=== PATIENT | female | born 1960 | race Caucasian/White ===

== ENCOUNTER → 2016-09-04 | Outpatient (CLI) | payer BC ==
[~2016-09-04] MED LIST: MAGN200T3 PO; MULT-506 PO
--- NOTE | 2016-09-05 07:55 | MAMMOGRAPHY REPORT ---
BILATERAL DIGITAL SCREENING MAMMOGRAM TOMOSYNTHESIS WITH CAD: 09/04/2016 CLINICAL HISTORY: Routine screening. Patient has no complaints. TECHNIQUE: Breast tomosynthesis in addition to standard 2D mammography was performed. Current study was also evaluated with a Computer Aided Detection (CAD) system. COMPARISON: Comparison is made to exams dated: 09/04/2015 mammogram, 08/31/2014 mammogram, 08/30/2013 ma mmogram, 08/28/2012 mammogram, 08/27/2011 mammogram, and 08/23/2010 mammogram - [facility] enter. BREAST COMPOSITION: There are scattered areas of fibroglandular density in both breasts. FINDINGS: There are stable benign coarse calcifications in the medial posterior left breast. No cezar picious mass, architectural distortion or cluster of suspicious microcalcifications is seen. IMPRESSION: ACR BI-RADS CATEGORY 1: NEGATIVE There is no mammographic evidence of malignancy. A 1 year screening mammogram is recommended. The p atient will receive written notification of the results. Approximately 10% of breast cancers are not detected with mammography. A negative mammographic repor t should not delay biopsy if a clinically suggestive mass is present. Sheila Burt M.D. ay/:09/04/2016 15:33:32 Appeals Writer: Megan JOHNSON(R)(M), [facility] letter sent: Normal 1/2 BI-RADS Code: ACR BI-RADS Category 1: Negative
== END | disposition home or self-care (01) ==
LOC: C.MAMM 13:48
PROVIDERS: ATTEND Obstetrics & Gynecology
DX: Z12.31 Encounter for screening mammogram for malignant neoplasm of breast (principal)

== ENCOUNTER → 2016-10-25 | Outpatient (CLI) | payer BC ==
[2016-10-25 09:46] LABS: ALT/SGPT 48 U/L (12-78); BLOOD UREA NITROGEN 14 mg/dl (7-18); BUN/CREATININE RATIO 20.1 (10-20); CALCIUM 9.1 mg/dl (8.5-10.1); CARBON DIOXIDE 31 mmol/L (21-32); CHLORIDE 109 mmol/L (98-107); CREATININE 0.69 mg/dl (0.60-1.20); GLUCOSE 92 mg/dl (70-99); POTASSIUM 4.3 mmol/L (3.5-5.1); SODIUM 144 mmol/L (136-145)
[2016-10-25 09:56] LABS: CHOLESTEROL 208 mg/dl (0-200); CHOLESTEROL/HDL RATIO 4.5; HDL CHOLESTEROL 46 mg/dl; LDL CHOLESTEROL CALCULATED 98 mg/dl; THYROID STIMULATING HORMONE 0.679 uIu/ml (0.300-4.500); TRIGLYCERIDES 320 mg/dl (0-150); VERY LOW DENSITY LIPOPROT CALC 64 mg/dl
[2016-10-25 09:58] LABS: ESTIMATED AVERAGE GLUCOSE 103 mg/dl; HA1C FLAG Normal (Normal)
== END | disposition home or self-care (01) ==
LOC: C.LAB1850 06:58
PROVIDERS: ATTEND Internal Medicine
DX: Z82.49 Family history of ischemic heart disease and other diseases of the circulatory system (principal); Z11.59 Encounter for screening for other viral diseases

== ENCOUNTER → 2017-08-21 | Outpatient (CLI) | payer OTHER | END | disposition home or self-care (01) | LOC: C.PAPS 08:13 | PROVIDERS: ATTEND Obstetrics & Gynecology | DX: Z01.419 Encounter for gynecological examination (general) (routine) without abnormal findings (principal) ==

== ENCOUNTER → 2017-09-05 | Outpatient (CLI) | payer OTHER ==
--- NOTE | 2017-09-09 07:40 | MAMMOGRAPHY REPORT ---
BILATERAL DIGITAL SCREENING MAMMOGRAM TOMOSYNTHESIS WITH CAD: 09/05/2017 CLINICAL HISTORY: Routine screening. Patient has no complaints. TECHNIQUE: Breast tomosynthesis in addition to standard 2D mammography was performed. Current study was also evaluated with a Computer Aided Detection (CAD) system. COMPARISON: Comparison is made to exams dated: 09/04/2016 mammogram, 09/04/2015 mammogram, 08/31/2014 mamm ogram, 08/30/2013 mammogram, 08/28/2012 mammogram, and 08/27/2011 mammogram - [facility] er. BREAST COMPOSITION: There are scattered areas of fibroglandular density in both breasts. FINDINGS: No suspicious masses, calcifications, or areas of architectural distortion are noted in ei ther breast. There has been no significant interval change compared to prior exams. IMPRESSION: ACR BI-RADS CATEGORY 1: NEGATIVE There is no mammographic evidence of malignancy. A 1 year screening mammogram is recommended. The pa tient will receive written notification of the results. Approximately 10% of breast cancers are not detected with mammography. A negative mammographic report should not delay biopsy if a clinically suggestive mass is present. Sonya Cisneros M.D. /:09/05/2017 15:27:46 Wedding Coordinator: Luz Marina Li [facility] letter sent: Normal 1/2 BI-RADS Code: ACR BI-RADS Category 1: Negative
== END | disposition home or self-care (01) ==
LOC: C.MAMM 15:02
PROVIDERS: ATTEND Obstetrics & Gynecology
DX: Z12.31 Encounter for screening mammogram for malignant neoplasm of breast (principal)

== ENCOUNTER 2025-05-06 19:04 | Observation (INO) ==
[2025-05-06 19:48] LABS: Hematocrit (blood only) 42.0 % (37.0-47.0); Hemoglobin 14.2 g/dL (12.0-16.0); Immature Granulocytes # (auto) 0.05 K/uL (0.01-0.20); Immature Granulocytes % (auto) 0.3 %; Mean Corpuscular Hemoglobin 28.4 pg (25.0-34.0); Mean Corpuscular Volume 84.0 fL (80.0-100.0); Platelet Count 247 K/uL (130-400); RDW Standard Deviation 38.8 fL (36.4-46.3); Red Blood Count 5.00 M/uL (4.20-5.40); White Blood Count 16.67 K/ul (4.8-10.8)
[2025-05-06] MEDS: ACETAMINOPHEN 1,000 MG/100 ML VIAL IV STA (20:01)
[2025-05-06] MEDS: PLASMA-LYTE A 1,000 ML IV ONE (20:01)
[2025-05-06 20:05] LABS: Alanine Aminotransferase 17.0 U/L (7-52); Albumin Globulin Ratio 1.1 (0.9-2); Albumin Level 4.0 gm/dl (3.4-5.0); Alkaline Phosphatase 69.0 U/L (34-104); Anion Gap 6.0 (3-11); Bilirubin,Total 0.6 mg/dl (0.2-1.0); Blood Urea Nitrogen 10.0 mg/dl (6-23); Calcium 9.5 mg/dl (8.6-10.3); Carbon Dioxide 27.0 mmol/L (21-32); Chloride 103.0 mmol/L (98-107); Creatinine Clr Calc Pharmacy 89.1 ml/min; Globulin 3.7 gm/dl (2.5-4.0); Glucose 96.0 mg/dl (70-99(Fasting)); Lipase 9.0 U/L (11-82); Potassium 3.7 mmol/L (3.5-5.1); Sodium 136.0 mmol/L (136-145); Total Protein 7.7 gm/dl (6.0-8.3)
[2025-05-06] MEDS: OPTIRAY 320 100ml IV ONE (20:48)
--- NOTE | 2025-05-06 21:04 | Emergency Department Note ---
Impression & Plan Acute appendicitis ED Provider Note NAME: MARIBELL SAUCEDO AGE: 65 SEX: F : 1960 ARRIVES VIA: Walk-In INFORMANT: Patient, ED PROVIDER(S): Corby Queen DO CHIEF COMPLAINT: abdominal pain HPI: This is a 65-year-old female with the PMHx of anxiety, hyperlipidemia and vitamin D deficiency presenting to [facility] for further evaluation of abdominal pain. Patient is accompanied by her who provide additional history. Patient states for 5 weeks she has had right lower quadrant abdominal pain. Worsened over the last week. Reports mild nausea. Patient states she has been taking a large amount of ibuprofen for pain relief. No urinary complaints. Patient denies recent changes in medications or OTC supplements. Patient offers no other complaints, today. ADDITIONAL HISTORY OBTAINED: Per HPI Chronic Medical/Social Conditions Affecting Care: Per HPI PAST MEDICAL HISTORY: See Below PAST SURGICAL HISTORY: See Below FAMILY HISTORY: See Below SOCIAL HISTORY: See Below HOME MEDICATIONS: See Below ALLERGIES: See Below VITALS: See Below PHYSICAL EXAMINATION: GENERAL: Sitting up in bed, alert, well appearing, well nourished, no distress, non-toxic EYE EXAM: normal conjunctiva. OROPHARYNX: no exudate, no erythema, lips, buccal mucosa, and tongue normal and mucous membranes are moist NECK: supple, no nuchal rigidity, no adenopathy, non-tender LUNGS: Clear to auscultation. Normal chest wall mechanics HEART: no murmurs, regular rate, regular rhythm ABDOMEN: abdomen soft, TTP in the RLQ no masses, no rebound or guarding. BACK: Back is symmetrical on inspection and there is no deformity, no midline tenderness, no CVA tenderness. SKIN: no rashes and no bruising UPPER EXTREMITIES: upper extremities are grossly normal. LOWER EXTREMITIES: No pitting edema. NEURO EXAM: Normal sensorium, GCS 15, normal speech, no gross weakness of arms, no gross weakness of legs. MEDICAL DECISION MAKING: Differential diagnoses includes but not limited to appendicitis, bowel obstruction, diverticulitis, malignancy, nephrolithiasis, gastroenteritis, pancreatitis, hepatobiliary disease, UTI, electrolyte derangements, dehydration, GI bleed In summary, this is a 65 year old female who presented with abdominal pain. Differential as above. Nursing notes and pertinent past medical records reviewed. Vital signs reviewed and the patient is afebrile and hemodynamically stable. History and presentation revealed ongoing abdominal pain over the last few weeks that suddenly worsened. Describes 1 episode of melena. Physical examination revealed as above. As a result of my initial evaluation, IV access was established and the patient was placed on CCRM. Therapeutics ordered include IV fluid resuscitation and Tylenol for pain control. Will proceed with CT imaging for further evaluation of intra-abdominal pathology including malignancy and acute appendicitis. Patient's symptoms are not necessarily consistent with an acute GI bleed. Diagnostics interpreted by me include cardiac monitoring as listed below: -Cardiac Monitoring: An order was placed for continuous cardiac monitoring. The monitor shows a rate of 70-90s with regular rhythm. Patient completed laboratory studies and imaging. Results independently interpreted by me are Stable hemoglobin without change. Does have a leukocytosis. Normal coagulation studies. There is no significant electrolyte derangements or significant kidney dysfunction from baseline. No changes in LFTs. UA is not infected. The patient was managed with IV fluid resuscitation and Tylenol originally. Patient CT abdomen/pelvis was independently interpreted by me as acute appendicitis and she was started on IV Zosyn. Formal read from radiology took a prolonged amount of time. Did discuss with general surgery following this. The patient had been made n.p.o. on arrival. General surgery was consulted for acute appendicitis. They will take the patient for operative intervention in the morning. Ultimately, the decision was made to admit the patient for acute appendicitis. I discussed the case with the General Surgery service via telephone/TigerText and they are agreeable to admit the patient to their services. Based on the above, including the patient's age, coexisting illnesses, labs, imaging, and exam findings the decision to treat as an inpatient. I discussed the patient with the General Surgery team who recommended admission to their services. They received the medications, treatments, interventions indicated above and their condition remained stable. I discussed my findings with the patient and their family and they understand and agree with the treatment plan. All patient / family questions were answered to their satisfaction. Consults/Care Managements Discussions: Per MDM ER treatment provided: See above Procedures:none Critical Care: None The chart was completed utilizing [employer]Globe voice recognition software. Grammatical errors, random word insertions, pronoun errors, and incomplete sentences are an occasional consequence of this system due to software limitations, ambient noise, and hardware issues. Any formal questions or concerns about the content, text, or information contained within the body of this dictation should be directly addressed to the physician for clarification. Past Med/Surg History Problem List (Updated 05/07/25 @ 00:26 by Corby Queen DO) Acute appendicitis (Acute) Appendicitis History of colon polyps Palpitations Tachycardia Vitamin D deficiency disease Postmenopausal Biceps tendonitis Anxiety (Acute) Urge and stress incontinence (Acute) Hyperlipidemia Health care maintenance Medical History Urge and stress incontinence History of palpitations spring 2023, had heart testing>no findings Hx of hyperlipidemia Glaucoma hx History of COVID-19 04/2020 - no hospitalization - chills, headache, SOB - resolved 02/11/24, no residual symptoms Surgical History Hx of colonoscopy History of surgical procedure on eye proper using laser for glaucoma S/P cholecystectomy Hx of tonsillectomy S/P tubal ligation S/P carpal tunnel release L hand- 04/12/2020 rt hand, in her early 30's Family History Mother Stroke Father Heart disease Diabetes Prostate cancer Heart failure Grandfather (Paternal) Diabetes Grandmother (Maternal) Stroke Brother Crohn's disease Alcoholic Deep vein thrombosis Denies family history of Ovarian cancer Breast cancer Colorectal cancer Social History Smoking Status: Former smoker Tobacco Type: Cigarettes Age Started Using Tobacco: 15; Age Quit Using Tobacco: 36; packs per day: 0.5; Second Hand Exposure: No; Do You Dip or Chew Tobacco: No; Hx Alcohol Use: Yes Alcohol type: wine Hx Substance Use: No Preferred Language: Greenlandic Communication Ability: Effective Visual Impairment: No Limitations Hearing Ability: Normal Overhead Crane Technician Required: No Beliefs That Will Affect Care: None marital status: Current Living Situation: Spouse and Family Current Living Situation Comment: , granddaughter and grandson current occupational status: employed current occupation: rn occupational Feels Safe at Home: Yes Dental Care, Regularly: Yes Physical Activity Frequency: 1-2 Times per Week Physical Activity Frequency Comment: walking Seatbelt Use: always Assistive Devices: Glasses Allergies Allergies Allergy/AdvReac Type Severity Reaction Status Date / Time No Known Allergies Allergy Verified 05/06/25 20:11 Home Meds Home Medications Medication Instructions Recorded Confirmed multivitamin (Daily Multi-Vitamin 1 tab PO DAILY 07/25/22 05/06/25 tablet) Results & Data (ED) Vital Signs Vital Signs - 24 hr 05/06/25 19:09 05/06/25 19:26 05/06/25 19:27 Temperature 36.7 C Temperature Source Temporal Artery Scan Pulse Rate 81 80 77 Pulse Rate from SpO2 Sensor 78 Respiratory Rate 18 13 Respiratory Effort / Characteristics Non-Labored Spontaneous Respiratory Depth Normal Respiratory Pattern Regular Blood Pressure 108/68 Blood Pressure Mean 81 Blood Pressure Position Sitting Pulse Oximetry 100 98 Oxygen Delivery Method Room Air Sepsis Recent Fever Within 48 Hours No Sepsis New/Unexplained Change in Mental Status No Sepsis Action Taken by Nursing No Action Required 05/06/25 19:29 05/06/25 19:29 05/06/25 19:29 Temperature Temperature Source Pulse Rate Pulse Rate from SpO2 Sensor Respiratory Rate Respiratory Effort / Characteristics Respiratory Depth Respiratory Pattern Blood Pressure 132/55 L 132/55 L 132/55 L Blood Pressure Mean 72 72 72 Blood Pressure Position Pulse Oximetry Oxygen Delivery Method Sepsis Recent Fever Within 48 Hours Sepsis New/Unexplained Change in Mental Status Sepsis Action Taken by Nursing 05/06/25 19:29 05/06/25 19:29 05/06/25 19:30 Temperature Temperature Source Pulse Rate 78 Pulse Rate from SpO2 Sensor 78 Respiratory Rate 24 Respiratory Effort / Characteristics Respiratory Depth Respiratory Pattern Blood Pressure 132/55 L 132/55 L Blood Pressure Mean 72 72 Blood Pressure Position Pulse Oximetry 100 Oxygen Delivery Method Sepsis Recent Fever Within 48 Hours Sepsis New/Unexplained Change in Mental Status Sepsis Action Taken by Nursing 05/06/25 19:40 05/06/25 19:42 05/06/25 19:51 Temperature Temperature Source Pulse Rate 80 83 Pulse Rate from SpO2 Sensor 80 83 Respiratory Rate 22 15 Respiratory Effort / Characteristics Respiratory Depth Respiratory Pattern Blood Pressure Blood Pressure Mean Blood Pressure Position Pulse Oximetry 97 98 98 Oxygen Delivery Method Room Air Sepsis Recent Fever Within 48 Hours Sepsis New/Unexplained Change in Mental Status Sepsis Action Taken by Nursing 05/06/25 20:00 05/06/25 20:00 05/06/25 20:00 Temperature Temperature Source Pulse Rate Pulse Rate from SpO2 Sensor Respiratory Rate Respiratory Effort / Characteristics Respiratory Depth Respiratory Pattern Blood Pressure 124/78 124/78 124/78 Blood Pressure Mean 94 94 94 Blood Pressure Position Pulse Oximetry Oxygen Delivery Method Sepsis Recent Fever Within 48 Hours Sepsis New/Unexplained Change in Mental Status Sepsis Action Taken by Nursing 05/06/25 20:00 05/06/25 20:00 05/06/25 20:00 Temperature Temperature Source Pulse Rate 83 Pulse Rate from SpO2 Sensor 82 Respiratory Rate 24 Respiratory Effort / Characteristics Respiratory Depth Respiratory Pattern Blood Pressure 124/78 124/78 Blood Pressure Mean 94 94 Blood Pressure Position Pulse Oximetry 100 Oxygen Delivery Method Sepsis Recent Fever Within 48 Hours Sepsis New/Unexplained Change in Mental Status Sepsis Action Taken by Nursing 05/06/25 20:12 05/06/25 20:30 05/06/25 20:51 Temperature Temperature Source Pulse Rate 83 84 90 Pulse Rate from SpO2 Sensor 82 84 89 Respiratory Rate 22 21 16 Respiratory Effort / Characteristics Respiratory Depth Respiratory Pattern Blood Pressure Blood Pressure Mean Blood Pressure Position Pulse Oximetry 99 98 98 Oxygen Delivery Method Sepsis Recent Fever Within 48 Hours Sepsis New/Unexplained Change in Mental Status Sepsis Action Taken by Nursing 05/06/25 21:00 05/06/25 21:00 05/06/25 21:00 Temperature Temperature Source Pulse Rate 83 Pulse Rate from SpO2 Sensor 83 Respiratory Rate 22 Respiratory Effort / Characteristics Respiratory Depth Respiratory Pattern Blood Pressure 123/67 123/67 Blood Pressure Mean 73 73 Blood Pressure Position Pulse Oximetry 96 Oxygen Delivery Method Sepsis Recent Fever Within 48 Hours Sepsis New/Unexplained Change in Mental Status Sepsis Action Taken by Nursing 05/06/25 21:00 05/06/25 21:00 05/06/25 21:00 Temperature Temperature Source Pulse Rate Pulse Rate from SpO2 Sensor Respiratory Rate Respiratory Effort / Characteristics Respiratory Depth Respiratory Pattern Blood Pressure 123/67 123/67 123/67 Blood Pressure Mean 73 73 73 Blood Pressure Position Pulse Oximetry Oxygen Delivery Method Sepsis Recent Fever Within 48 Hours Sepsis New/Unexplained Change in Mental Status Sepsis Action Taken by Nursing 05/06/25 21:12 05/06/25 21:21 05/06/25 21:30 Temperature Temperature Source Pulse Rate 83 83 83 Pulse Rate from SpO2 Sensor 83 84 82 Respiratory Rate 20 22 22 Respiratory Effort / Characteristics Respiratory Depth Respiratory Pattern Blood Pressure Blood Pressure Mean Blood Pressure Position Pulse Oximetry 96 97 96 Oxygen Delivery Method Sepsis Recent Fever Within 48 Hours Sepsis New/Unexplained Change in Mental Status Sepsis Action Taken by Nursing 05/06/25 21:42 05/06/25 21:51 05/06/25 22:12 Temperature Temperature Source Pulse Rate 82 82 84 Pulse Rate from SpO2 Sensor 82 82 Respiratory Rate 25 H 20 17 Respiratory Effort / Characteristics Respiratory Depth Respiratory Pattern Blood Pressure Blood Pressure Mean Blood Pressure Position Pulse Oximetry 96 96 Oxygen Delivery Method Sepsis Recent Fever Within 48 Hours Sepsis New/Unexplained Change in Mental Status Sepsis Action Taken by Nursing 05/06/25 22:21 05/06/25 22:30 05/06/25 22:42 Temperature Temperature Source Pulse Rate 84 81 81 Pulse Rate from SpO2 Sensor Respiratory Rate 22 19 20 Respiratory Effort / Characteristics Respiratory Depth Respiratory Pattern Blood Pressure Blood Pressure Mean Blood Pressure Position Pulse Oximetry Oxygen Delivery Method Sepsis Recent Fever Within 48 Hours Sepsis New/Unexplained Change in Mental Status Sepsis Action Taken by Nursing 05/06/25 22:51 05/06/25 23:00 05/06/25 23:00 Temperature Temperature Source Pulse Rate 84 77 Pulse Rate from SpO2 Sensor 77 Respiratory Rate 17 20 Respiratory Effort / Characteristics Respiratory Depth Respiratory Pattern Blood Pressure 128/78 Blood Pressure Mean 98 Blood Pressure Position Pulse Oximetry 96 Oxygen Delivery Method Sepsis Recent Fever Within 48 Hours Sepsis New/Unexplained Change in Mental Status Sepsis Action Taken by Nursing 05/06/25 23:00 05/06/25 23:00 05/06/25 23:18 Temperature Temperature Source Pulse Rate 78 Pulse Rate from SpO2 Sensor Respiratory Rate Respiratory Effort / Characteristics Respiratory Depth Respiratory Pattern Blood Pressure 128/78 128/78 Blood Pressure Mean 98 98 Blood Pressure Position Pulse Oximetry Oxygen Delivery Method Sepsis Recent Fever Within 48 Hours Sepsis New/Unexplained Change in Mental Status Sepsis Action Taken by Nursing Laboratory Data 05/06/25 19:21 05/06/25 19:21 Lab Results 05/06/25 05/06/25 Range/Units 19:21 20:14 WBC 16.67 H (4.8-10.8) K/ul RBC 5.00 (4.20-5.40) M/uL Hgb 14.2 (12.0-16.0) g/dL Hct 42.0 (37.0-47.0) % MCV 84.0 (80.0-100.0) fL MCH 28.4 (25.0-34.0) pg MCHC 33.8 (32.0-36.0) g/dL RDW Std Deviation 38.8 (36.4-46.3) fL RDW Coeff of Caleb 12.9 (11.5-14.5) % Plt Count 247 (130-400) K/uL MPV 9.5 (9.4-12.4) fL Immature Gran % (Auto) 0.3 % Neut % (Auto) 77.9 % Lymph % (Auto) 14.5 % Garrett % (Auto) 6.8 % Eos % (Auto) 0.2 % Baso % (Auto) 0.3 % Neut # (Auto) 12.99 H (1.40-6.50) K/uL Lymph # (Auto) 2.41 (1.20-3.40) K/uL Garrett # (Auto) 1.13 H (0.11-0.59) K/uL Eos # (Auto) 0.04 (0.00-0.50) K/uL Baso # (Auto) 0.05 (0.00-0.20) K/uL Immature Gran # (Auto) 0.05 (0.01-0.20) K/uL PT 10.5 (9.0-12.0) Seconds INR 1.0 (0.9-1.1) APTT 28 (21-31) Seconds PTT Ratio 1.0 Sodium 136 (136-145) mmol/L Potassium 3.7 (3.5-5.1) mmol/L Chloride 103 (98-107) mmol/L Carbon Dioxide 27 (21-32) mmol/L Anion Gap 6 (3-11) BUN 10 (6-23) mg/dl Creatinine 0.56 L (0.6-1.2) mg/dl Est Cr Clr Drug Dosing 89.1 ml/min eGFR 101.85 BUN/Creatinine Ratio 17.9 (10-20) Glucose 96 (70-99(Fasting)) mg/dl Lactate 0.8 (0.4-2.0) mmol/L Calcium 9.5 (8.6-10.3) mg/dl Total Bilirubin 0.6 (0.2-1.0) mg/dl AST 20 (13-39) U/L ALT 17 (7-52) U/L Alkaline Phosphatase 69 (34-104) U/L Total Protein 7.7 (6.0-8.3) gm/dl Albumin 4.0 (3.4-5.0) gm/dl Globulin 3.7 (2.5-4.0) gm/dl Albumin/Globulin Ratio 1.1 (0.9-2) Lipase 9 L (11-82) U/L Urine Color Yellow Urine Appearance Clear (Clear) Urine pH 6.0 (4.5-7.5) Ur Specific [place] 1.015 (1.000-1.030) Urine Protein Trace H (Negative) Urine Glucose (UA) Negative (Negative) Urine Ketones 2+ H (Negative) Urine Blood 1+ H (Negative) Urine Nitrite Negative (Negative) Urine Bilirubin Negative (Negative) Urine Urobilinogen Negative (Negative) Ur Leukocyte Esterase 1+ H (Negative) Urine WBC (Auto) 0-5 (0-5) /hpf Urine RBC (Auto) 0-2 (0-2) /hpf U Hyaline Cast (Auto) 0-2 (0-2) /lpf U Epithel Cells (Auto) 0-2 (0-2) /hpf Urine Bacteria (Auto) None Seen (None Seen) Urine Comment Administered Medications Morphine Sulfate (Morphine Sulfate 4 Mg/Ml 1 Ml Carp\Vial) 3 mg IV Q3H PRN PRN Reason: Severe Pain (Scale 7, 8, 9,10) Stop: 05/20/25 22:30 Last Admin: 05/07/25 00:17 Dose: 3 mg Documented By: HENNA Discontinued Medications Parenteral Electrolytes (Plasma-Lyte A Ph 7.4) 1,000 mls @ 999 mls/hr IV .Q1H1M ONE Stop: 05/06/25 20:40 Last Infusion: 05/06/25 23:03 Dose: Infused Documented By: Admin: 05/06/25 20:01 Dose: 999 mls/hr Documented By: DONAL Acetaminophen (Ofirmev) 1,000 mg in 100 mls @ 400 mls/hr IV NOW STA Stop: 05/06/25 19:54 Last Infusion: 05/06/25 20:34 Dose: Infused Documented By: Admin: 05/06/25 20:01 Dose: 400 mls/hr Documented By: DONAL Piperacillin Sod/Tazobactam Sod (Zosyn) 4.5 gm in 100 mls @ 200 mls/hr IV NOW ONE; Protocol Stop: 05/06/25 21:32 Last Infusion: 05/06/25 23:03 Dose: Infused Documented By: Admin: 05/06/25 21:25 Dose: 200 mls/hr Documented By: MAULIK Ioversol (Optiray 320 100ml) 90 ml IV ONCE ONE Stop: 05/06/25 20:46 Last Admin: 05/06/25 20:48 Dose: 90 ml Documented By: EDK Imaging Data Radiologist's Impression: Abdomen/Pelvis CT 05/06/25 19:40 Exam(s): CT ABDOMEN + PELVIS With Contrast IV Amt: 90 ml optiray 320 EXAM: CT Abdomen and Pelvis With Intravenous Contrast CLINICAL HISTORY: RLQ pain, melena, eval for mass. TECHNIQUE: Axial computed tomography images of the abdomen and pelvis with intravenous contrast. CTDI is 15.85 mGy and DLP is 741.6 mGy-cm. Automated exposure control was utilized for the study. A dose lowering technique was utilized adhering to the principles of ALARA. CONTRAST: Patient received 90 ml optiray 320 of IV contrast COMPARISON: Gallbladder ultrasound 11/15/2021, right lower quadrant ultrasound 05/06/2025. FINDINGS: Lung bases: Unremarkable. No mass. No consolidation. ABDOMEN: Liver: Unremarkable. No mass. Gallbladder and bile ducts: Post cholecystectomy. No ductal dilation. Pancreas: Unremarkable. No mass. No ductal dilation. Spleen: Unremarkable. No splenomegaly. Adrenals: Unremarkable. No mass. Kidneys and ureters: No obstructive uropathy. No obstructing renal or ureteral calculi. No hydronephrosis or hydroureter. Stomach and bowel: No obstruction or ileus. No evidence for diverticulitis. PELVIS: Appendix: Diffusely enlarged up to 15 mm appendix with wall thickening and surrounding infiltration. 5 mm calcification in the proximal appendix consistent with appendicolith (coronal series 300 image 40). No focal collection or associated free gas. Bladder: Partially contracted. No mass. Reproductive: Small uterine calcifications. Uterus and ovaries are otherwise grossly unremarkable. ABDOMEN and PELVIS: Intraperitoneal space: No free air. No free fluid. Bones/joints: No acute fracture. Soft tissues: Unremarkable. Vasculature: Unremarkable. No abdominal aortic aneurysm. Lymph nodes: Unremarkable. No enlarged lymph nodes. IMPRESSION: Diffusely enlarged up to 15 mm appendix with wall thickening and surrounding infiltration, consistent with acute appendicitis. Associated proximal appendicolith. No CT evidence for rupture. Status post cholecystectomy. Small uterine calcifications, possibly related to fibroids. Electronically signed by: Tesfaye Barger M.D. 05/06/25 22:15 PM Chest X-Ray 05/06/25 22:39 Exam(s): XR CXR 1 VIEW EXAM: XR Chest, 1 View CLINICAL HISTORY: pre-op. TECHNIQUE: Frontal view of the chest. COMPARISON: No relevant prior studies available. FINDINGS: Lungs: No infiltrate. Hypoventilation with mild bibasilar atelectasis. No CHF. Pleural space: No pleural effusion. No pneumothorax. Heart: Unremarkable. No cardiomegaly. Mediastinum: Unremarkable. Normal mediastinal contour. Bones/joints: Unremarkable. No acute fracture. IMPRESSION: Hypoventilation with mild bibasilar atelectasis. Electronically signed by: Tesfaye Barger M.D. 05/06/25 23:46 PM Discharge Plan Visit Data Chief Complaint: Abdominal Pain Stated Complaint: RIGHT LOWER STOMACH ED Provider: Corby Queen Discharge Problem: Acute appendicitis Patient Disposition: Admitted As Inpatient Condition: Serious Forms Stand Alone Forms: [facility] [place] Prescriptions Prescriptions: No Action multivitamin [Daily Multi-Vitamin] Tablet 1 tab PO DAILY Referrals Referrals: Jodie Chávez MD [Primary Care Provider] -
[2025-05-06] MEDS: PIPERACILLIN/TAZOBACTAM 4.5 GM/100 ML BAG IV ONE (21:25)
[2025-05-06 21:38] LABS: Appearance Urine Clear (Clear); Bacteria Urine Automated None Seen (None Seen); Cast Urine Automated 0-2 /lpf (0-2); Epithelial Cell Urine Auto 0-2 /hpf (0-2); Glucose Urine UA Negative (Negative); RBC Urine Automated 0-2 /hpf (0-2); WBC Urine Automated 0-5 /hpf (0-5)
--- NOTE | 2025-05-06 22:16 | CT Scan Report ---
Exam(s): CT ABDOMEN + PELVIS With Contrast IV Amt: 90 ml optiray 320 EXAM: CT Abdomen and Pelvis With Intravenous Contrast CLINICAL HISTORY: RLQ pain, melena, eval for mass. TECHNIQUE: Axial computed tomography images of the abdomen and pelvis with intravenous contrast. CTDI is 15.85 mGy and DLP is 741.6 mGy-cm. Automated exposure control was utilized for the study. A dose lowering technique was utilized adhering to the principles of ALARA. CONTRAST: Patient received 90 ml optiray 320 of IV contrast COMPARISON: Gallbladder ultrasound 11/15/2021, right lower quadrant ultrasound 05/06/2025. FINDINGS: Lung bases: Unremarkable. No mass. No consolidation. ABDOMEN: Liver: Unremarkable. No mass. Gallbladder and bile ducts: Post cholecystectomy. No ductal dilation. Pancreas: Unremarkable. No mass. No ductal dilation. Spleen: Unremarkable. No splenomegaly. Adrenals: Unremarkable. No mass. Kidneys and ureters: No obstructive uropathy. No obstructing renal or ureteral calculi. No hydronephrosis or hydroureter. Stomach and bowel: No obstruction or ileus. No evidence for diverticulitis. PELVIS: Appendix: Diffusely enlarged up to 15 mm appendix with wall thickening and surrounding infiltration. 5 mm calcification in the proximal appendix consistent with appendicolith (coronal series 300 image 40). No focal collection or associated free gas. Bladder: Partially contracted. No mass. Reproductive: Small uterine calcifications. Uterus and ovaries are otherwise grossly unremarkable. ABDOMEN and PELVIS: Intraperitoneal space: No free air. No free fluid. Bones/joints: No acute fracture. Soft tissues: Unremarkable. Vasculature: Unremarkable. No abdominal aortic aneurysm. Lymph nodes: Unremarkable. No enlarged lymph nodes. IMPRESSION: Diffusely enlarged up to 15 mm appendix with wall thickening and surrounding infiltration, consistent with acute appendicitis. Associated proximal appendicolith. No CT evidence for rupture. Status post cholecystectomy. Small uterine calcifications, possibly related to fibroids. Electronically signed by: Tesfaye Barger M.D. 05/06/25 22:15 PM
[2025-05-06] MEDS ORDERED: ONDANSETRON INJ 2 MG/ML 2 ML VIAL IV PRN (22:34)
--- NOTE | 2025-05-06 23:00 | History & Physical Report ---
Date of Service May 06, 2025 Assessment & Plan (1) Appendicitis: Plan: Due to the patient's clinical presentation, as well as her findings on imaging and lab she will be admitted to the surgical service proceeding as follows: Antibiotics in form of Zosyn and then initiated by the treating clinician the emergency department these will continue Analgesics will be provided Antiemetics to be provided Will hydrate her with IV fluids N.p.o. status will be implemented/maintain Will check coagulation studies Will check a preoperative EKG Will tentatively plan on having the patient undergo an appendectomy with Dr. Jordan on 05/07/2025t the time of my interview the patient was hemodynamically stable as she was normotensive without tachycardia or fever. As the patient is stable we will plan for surgery for tomorrow morning which is 05/07/2025 and she is not appropriately n.p.o. at this time Will use SCDs for DVT prevention, no chemical means due to planned surgery Additional recommendations be forthcoming based on operative findings and her postoperative recovery thereafter She will be a level 1 full code Addendum: EKG was reviewed. This shows normal sinus rhythm without changes indicative of acute ischemia. Coagulation studies noted to be normal. Addendum (6:10 AM) Patient revisited at bedside. Since admission to the floor she has not had any fevers. She denies any nausea or vomiting. She continues to have pain in the right lower quadrant but notes it is no worse than what was noted at time she was seen in the emergency department. She has remained normotensive but does have a slight tachycardia with heart rate in the 90s. She is afebrile. Will continue with plan as outlined above History of Present Illness Chief Complaint: Abdominal pain Primary Care Provider: Jodie Chávez MD This is a 65 female who presented to the emergency department secondary to abdominal pain. She says that she has been having off-and-on pain in her lower abdomen for "a few weeks", but she notes that the pain is gotten markedly worse over the past 2 to 3 days and is primarily located in the right lower quadrant without radiation or mitigating factors. She denies any fevers, shakes, or chills. She denies any nausea or vomiting. She notes that she has had prior abdominal surgery as she has had a tubal ligation and a cholecystectomy. She notes that she ate some toast around 4:00 PM, but she has been drinking a soft drink since arrival to the emergency department. Request the patient about previous medical problems which she denies. She also notes she does not take any medications. She does note that when she feels well she is able to ambulate both up and down steps and on flat surfaces without any chest pain or shortness of breath Since arrival to emergency department she has had labs and imaging which I dependently reviewed. A CT scan of the abdomen pelvis showed the patient had a diffusely enlarged appendix measuring 15 mm with wall thickening and surrounding infiltration consistent with acute appendicitis. She was also noted to have a proximal appendicolith. There is no evidence of rupture of the appendix. Labs included CBC were white blood cell count was elevated 16.6. Hemoglobin and hematocrit as well as the platelet count were normal. Chemistry profile showed sodium and potassium as well as the BUN were normal. Her BUN was elevated at 0.5. Urinalysis had 1+ leukocyte esterase but was otherwise not indicative of i nfection. A chest x-ray was performed that did not show any evidence of pneumonia. At the time of my interview she was resting comfortably bed and she was in no distress. Allergies Allergy/AdvReac Type Severity Reaction Status Date / Time No Known Allergies Allergy Verified 05/06/25 20:11 Home Medications Medication Instructions Recorded Confirmed Type multivitamin (Daily Multi-Vitamin 1 tab PO DAILY 07/25/22 05/06/25 History tablet) Past Med/Surg History Problem List (Updated 05/07/25 @ 00:26 by Corby Queen DO) Acute appendicitis (Acute) Appendicitis History of colon polyps Palpitations Tachycardia Vitamin D deficiency disease Postmenopausal Biceps tendonitis Anxiety (Acute) Urge and stress incontinence (Acute) Hyperlipidemia Health care maintenance Medical History Urge and stress incontinence History of palpitations spring 2023, had heart testing>no findings Hx of hyperlipidemia Glaucoma hx History of COVID-19 04/2020 - no hospitalization - chills, headache, SOB - resolved 02/11/24, no residual symptoms Surgical History Hx of colonoscopy History of surgical procedure on eye proper using laser for glaucoma S/P cholecystectomy Hx of tonsillectomy S/P tubal ligation S/P carpal tunnel release L hand- 04/12/2020 rt hand, in her early 30's Family History Mother Stroke Father Heart disease Diabetes Prostate cancer Heart failure Grandfather (Paternal) Diabetes Grandmother (Maternal) Stroke Brother Crohn's disease Alcoholic Deep vein thrombosis Denies family history of Ovarian cancer Breast cancer Colorectal cancer Social History Smoking Status: Former smoker Tobacco Type: Cigarettes Age Started Using Tobacco: 15; Age Quit Using Tobacco: 36; packs per day: 0.5; Smoking End Date: 1984; Second Hand Exposure: No; Do You Dip or Chew Tobacco: No; Tobacco Cessation Education Requested by Patient: No Hx Alcohol Use: Yes Alcohol type: beer, wine and hard liquor Hx Substance Use: No Preferred Language: Azeri Communication Ability: Effective Visual Impairment: No Limitations Hearing Ability: Normal Team Manager Required: No Beliefs That Will Affect Care: None marital status: Current Living Situation: Spouse and Family Current Living Situation Comment: , granddaughter and grandson current occupational status: employed current occupation: media intern Other Information That Helps Us Care for You: No Feels Safe at Home: Yes Safety Concerns: Feels Safe At This Time Dental Care, Regularly: Yes Physical Activity Frequency: 1-2 Times per Week Physical Activity Frequency Comment: walking Seatbelt Use: always Assistive Devices: Glasses Review of Systems Review of Systems: All systems reviewed & are unremarkable except as noted in HPI & below Physical Exam Constitutional: WD/WN, vitals as above Eyes: no conjunctival abnormality ENMT: Ears: no hearing impairment and no external ear abnormality Neck: trachea midline Respiratory: normal respiratory effort; no respiratory distress and no labored breathing Cardiovascular: Rate/Rhythm: regular rate and regular rhythm Vessels: dorsalis pedis pulses present Gastrointestinal (Abdomen): Abdomen is soft without rebound tenderness, guarding, rigidity, or signs of peritonitis. It is minimally distended. She does have pain with palpation in the right lower quadrant of McBurney's point Musculoskeletal: No calf tenderness Skin: no rashes Neurologic: moves all extremities Psychiatric: A+Ox3, euthymic affect Results & Data Results & Data Vital Signs (Past 12 Hours) Vital Signs Temp Pulse Resp BP Pulse Ox O2 Del Method 05/06/25 21:21 83 22 97 05/06/25 21:12 83 20 96 05/06/25 21:00 123/67 05/06/25 21:00 123/05/06/25 21:00 123/67 05/06/25 21:00 123/05/06/25 21:00 123/05/06/25 21:00 83 22 96 05/06/25 20:51 90 16 98 05/06/25 20:30 84 21 98 05/06/25 20:12 83 22 99 05/06/25 20:00 83 24 100 05/06/25 20:00 124/78 05/06/25 20:00 124/78 05/06/25 20:00 124/78 05/06/25 20:00 124/78 05/06/25 20:00 124/78 05/06/25 19:51 83 15 98 05/06/25 19:42 80 22 98 05/06/25 19:40 97 Room Air 05/06/25 19:30 78 24 100 05/06/25 19:29 132/55 L 05/06/25 19:29 132/55 L 05/06/25 19:29 132/55 L 05/06/25 19:29 132/55 L 05/06/25 19:29 132/55 L 05/06/25 19:27 77 13 98 05/06/25 19:26 80 05/06/25 19:09 36.7 C 81 18 108/68 100 Room Air PG Care Time/CCT Total # of Minutes Spent Total Time Spent with Patient: Total time spent is greater than 50% in coordination of care (as documented) at patient's floor/unit and/or counseling patient: Coding Level of Care Code 68677 INT INP/OBS CARE 3/75MIN Diagnoses Appendicitis K37
--- NOTE | 2025-05-06 23:47 | XRay Report ---
Exam(s): XR CXR 1 VIEW EXAM: XR Chest, 1 View CLINICAL HISTORY: pre-op. TECHNIQUE: Frontal view of the chest. COMPARISON: No relevant prior studies available. FINDINGS: Lungs: No infiltrate. Hypoventilation with mild bibasilar atelectasis. No CHF. Pleural space: No pleural effusion. No pneumothorax. Heart: Unremarkable. No cardiomegaly. Mediastinum: Unremarkable. Normal mediastinal contour. Bones/joints: Unremarkable. No acute fracture. IMPRESSION: Hypoventilation with mild bibasilar atelectasis. Electronically signed by: Tesfaye Barger M.D. 05/06/25 23:46 PM
[2025-05-06 23:48] LABS: INR 1.0 (0.9-1.1); Partial Thromboplastin Time 28 Seconds (21-31); Prothrombin Time 10.5 Seconds (9.0-12.0)
[2025-05-07] MEDS: MoRPHine SULFATE 4 MG/ML 1 ML CARP\\VIAL IV PRN (00:17)
[2025-05-07] MEDS: SODIUM CHLORIDE 0.9% 1,000 ML IV SCH (00:26)
[2025-05-07] MEDS: PIPERACILLIN/TAZOBACTAM 4.5 GM/100 ML BAG IV SCH (04:27)
[2025-05-07] MEDS: ACETAMINOPHEN 1,000 MG/100 ML VIAL IV PRN (07:33)
--- NOTE | 2025-05-07 09:09 | Surgery Progress Note ---
Date of Service May 07, 2025 Assessment & Plan (1) Acute appendicitis: Plan: Pt here w/ RLQ pain. CT imaging shows findings of acute appendicitis WBC 16.6 on admission. Vitals stable, HRs 90s, Temp 99.5F at 730am Reports stable RLQ discomfort, no worse NPO and receiving IV abx Will plan on lap appendectomy this morning with Dr. Jordan as above. stable. mild RLQ ttp. discussed options/risks ( bleeding/infection/injury to another organ/dvt/pe/mi/cva etc...) questions asnwered. will proceed with lap appy this AM. Admission and Anticipated Discharge Date Admission Date: May 06, 2025 Subjective Patient doing fine. + pain in the RLQ with palpation, but feels no worse than when she came in. No true fevers. Physical Exam Physical Exam: awake/alert, no distress Constitutional: well developed and well nourished; no acute distress Respiratory: normal respiratory effort Gastrointestinal (Abdomen): Percussion/Palpation: + abdomen tender (RLQ) and abdomen soft Results & Data Vital Signs (Past 12 Hours) Vital Signs Temp Pulse Pulse Resp BP BP Pulse Ox 05/07/25 07:29 99.5 F 97 H 16 116/76 93 05/07/25 02:50 97.7 F 94 H 16 137/78 96 05/07/25 01:56 80 20 114/68 98 05/07/25 00:40 79 18 132/74 95 05/06/25 23:18 78 05/06/25 23:00 128/78 05/06/25 23:00 128/78 05/06/25 23:00 128/78 05/06/25 23:00 77 20 96 05/06/25 22:51 84 17 05/06/25 22:42 81 20 05/06/25 22:30 81 19 05/06/25 22:21 84 22 05/06/25 22:12 84 17 05/06/25 21:51 82 20 96 05/06/25 21:42 82 25 H 96 05/06/25 21:30 83 22 96 05/06/25 21:21 83 22 97 05/06/25 21:12 83 20 96 O2 Del Method 05/07/25 07:29 Room Air 05/07/25 02:50 Room Air 05/07/25 01:56 12/06/25 00:40 05/06/25 23:18 05/06/25 23:00 05/06/25 23:00 05/06/25 23:00 05/06/25 23:00 05/06/25 22:51 05/06/25 22:42 05/06/25 22:30 05/06/25 22:21 05/06/25 22:12 05/06/25 21:51 05/06/25 21:42 05/06/25 21:30 05/06/25 21:21 05/06/25 21:12 PG Care Time/CCT Total # of Minutes Spent Total Time Spent with Patient: Total time spent is greater than 50% in coordination of care (as documented) at patient's floor/unit and/or counseling patient: Coding Level of Care Code 93883 SUB INP/OBS CARE 06/26MIN Diagnoses Acute appendicitis K35.80
[2025-05-07] MEDS ORDERED: ONDANSETRON INJ 2 MG/ML 2 ML VIAL ONE (10:26)
[2025-05-07] MEDS ORDERED: ROCURONIUM BROMIDE 10 MG/ML 5 ML VIAL IV ONE (10:26)
[2025-05-07] MEDS ORDERED: DEXAMETHASONE SOD INJ 4 MG/ML VIAL ONE (10:26)
[2025-05-07] MEDS ORDERED: MIDAZOLAM HCL 1 MG/ML 2ML VIAL ONE (10:26)
[2025-05-07] MEDS ORDERED: ATROPINE SULFATE 0.1 MG/ML 10ML SYR IV PRN (10:35)
[2025-05-07] MEDS ORDERED: ONDANSETRON INJ 2 MG/ML 2 ML VIAL IV PRN (10:35)
[2025-05-07] MEDS ORDERED: HYDROmorphone INJ 1 MG/ML SYRINGE IV PRN (10:35)
[2025-05-07] MEDS ORDERED: PROMETHAZINE HCL 6.25 MG in SODIUM CHLORIDE 0.9% 50 ML IV PRN (10:35)
--- NOTE | 2025-05-07 10:35 | Anesthesiology Consultation ---
Date of Service May 07, 2025 Assessment & Plan Chart Review Chart Review: Acceptable Risk for Surgery Consults Requested none History Surgery Operation Date: 05/07/25 06:35 Proposed Procedures p Laparoscopic Appendectomy - Ole Jordan DO Height/Weight Height: 5 ft 1 in Weight: 67.1 kg Allergies Allergy/AdvReac Type Severity Reaction Status Date / Time No Known Allergies Allergy Verified 05/06/25 20:11 Medications Home Medications Medication Instructions Recorded Confirmed Last Taken multivitamin (Daily Multi-Vitamin 1 tab PO DAILY 07/25/22 05/06/25 Unknown tablet) Active Medications Generic Name Dose Route Start Last Admin Trade Name Freq PRN Reason Stop Dose Admin Sodium Chloride 1,000 mls @ 100 mls/hr 05/06/25 22:45 05/07/25 00:26 Nss IV 05/09/25 22:44 100 mls/hr .Q10H ORLY Administration Acetaminophen 1,000 mg in 100 mls @ 400 mls/hr 05/06/25 22:31 05/07/25 08:35 Ofirmev IV 05/09/25 22:30 Infused Q8H PRN Infusion Moderate Pain (Scale 4, 5, 6) Piperacillin Sod/Tazobactam Sod 4.5 gm in 100 mls @ 25 mls/hr 05/07/25 04:00 05/07/25 08:34 Zosyn IV 05/17/25 03:10 Infused Q8H ORLY Infusion Protocol Morphine Sulfate 3 mg 05/06/25 22:31 05/07/25 00:17 Morphine Sulfate 4 Mg/Ml 1 Ml Carp\Vial IV 05/20/25 22:30 3 mg Q3H PRN Administration Severe Pain (Scale 7, 8, 9,10) NPO Date Last Intake of Fluids: 05/06/25 Time Last Intake of Fluids: 19:00 Date Last Intake of Solids: 05/06/25 Time Last Intake of Solids: 16:00 Past Medical History Medical History Urge and stress incontinence History of palpitations spring 2023, had heart testing>no findings Hx of hyperlipidemia Glaucoma hx History of COVID-19 04/2020 - no hospitalization - chills, headache, SOB - resolved 02/11/24, no residual symptoms Past Family History Family History Mother Stroke Father Heart disease Diabetes Prostate cancer Heart failure Grandfather (Paternal) Diabetes Grandmother (Maternal) Stroke Brother Crohn's disease Alcoholic Deep vein thrombosis Denies family history of Ovarian cancer Breast cancer Colorectal cancer Past Surgical History Surgical History Hx of colonoscopy History of surgical procedure on eye proper using laser for glaucoma S/P cholecystectomy Hx of tonsillectomy S/P tubal ligation S/P carpal tunnel release L hand- 04/12/2020 rt hand, in her early 30's Social History Smoking Status: Former smoker Do You Dip or Chew Tobacco: No Smoking End Date: 1984 Hx Alcohol Use: Yes Alcohol type: beer, wine and hard liquor alcohol intake frequency: holidays/special occasions only Hx Substance Use: No substance use type: does not use Physical Exam Vital Signs Last Vital Signs Temp 37.5 C 05/07/25 07:29 Pulse 97 H 05/07/25 07:29 Resp 16 05/07/25 07:29 BP 116/76 05/07/25 07:29 Pulse Ox 93 05/07/25 07:29 O2 Del Method Room Air 05/07/25 07:29 Testing Laboratory Results 05/06/25 19:21 05/06/25 19:21 PT 10.5 Seconds (9.0-12.0) 05/06/25 19:21 INR 1.0 (0.9-1.1) 05/06/25 19:21 APTT 28 Seconds (21-31) 05/06/25 19:21 Urine Color Yellow 05/06/25 19:21 Urine Appearance Clear (Clear) 05/06/25 19:21 Urine pH 6.0 (4.5-7.5) 05/06/25 19:21 Ur Specific [place] 1.015 (1.000-1.030) 05/06/25 19:21 Urine Protein Trace (Negative) H 05/06/25 19:21 Urine Glucose (UA) Negative (Negative) 05/06/25 19:21 Urine Ketones 2+ (Negative) H 05/06/25 19:21 Urine Nitrite Negative (Negative) 05/06/25 19:21 Ur Leukocyte Esterase 1+ (Negative) H 05/06/25 19:21 Urine WBC (Auto) 0-5 /hpf (0-5) 05/06/25 19:21 Urine RBC (Auto) 0-2 /hpf (0-2) 05/06/25 19:21 U Hyaline Cast (Auto) 0-2 /lpf (0-2) 05/06/25 19:21 U Epithel Cells (Auto) 0-2 /hpf (0-2) 05/06/25 19:21 Urine Bacteria (Auto) None Seen (None Seen) 05/06/25 19:21
[2025-05-07] MEDS ORDERED: KETOROLAC 30 MG/ML VIAL ONE (11:22)
[2025-05-07] MEDS ORDERED: SUGAMMADEX SODIUM 200 MG/2 ML VIAL IV ONE (11:22)
[2025-05-07] MEDS: BUPIVACAINE/EPINEPHRINE 0.5% MPF 1:200,000 30 ML VIAL ONE (11:33)
--- NOTE | 2025-05-07 11:43 | Operative Report ---
PG Post Operative Report Pre & Post Diagnosis Operation Date: 05/07/25 06:35 Pre-Op Diagnosis: Acute appendicitis Post-Op Diagnosis: Acute appendicitis I identified the patient and participated in the time-out.: Yes Procedure Operation Date: 05/07/25 06:35 Actual Procedures p Laparoscopic Appendectomy(Not Applicable) - Ole Jordan DO Surgeon Ole Jordan DO Senior Commissions Analyst gee Cordero Estimated Blood Loss 10 Findings Consistent with Post-Op Diagnosis Specimens appendix Description of Procedure After informed consent was obtained the patient was taken to the operating room and placed in supine position. After successful intubation a Beltran catheter was placed and the left arm was tucked. A Beltran catheter was inserted sterilely. I began by making a periumbilical incision with an 11 blade scalpel and carried this down through the soft tissue using electrocautery. The anterior rectus fascia was opened using electrocautery and 2 #0 Vicryl stay sutures were placed. The peritoneum was elevated using hemostats and incised under direct vision using a Metzenbaum scissor. A finger sweep was performed. A 12 mm Hubbard trocar was placed and the abdomen was insufflated to 18 mmHg. A laparoscope was inserted and the abdomen was examined in 360. A suprapubic 5 mm port and a left lower quadrant 12 mm port were placed under direct vision. The patient was air planed to the left as well as placed in a slight Trendelenburg position. We began by looking in the right lower quadrant. The appendix was retrocecal. We rolled the cecum medially and subsequently we were able to readily identify the appendix and it was grossly inflamed. It had not perforated though there was some purulent fluid surrounding it. There is a small amount of purulent fluid in the right lower quadrant as well as the pelvis. We immediately irrigated and suctioned this out. I was able to use primarily blunt dissection to pull the appendix away from the right lower quadrant sidewall. Next I made a window in the mesentery of the appendix. I was then able to use a PETER brown cartridge stapler to transect first the mesentery of the appendix followed by the appendix itself at its base with the cecum. It was then placed into an Endo Catch bag and removed from the camera port site. We thoroughly irrigated the right lower quadrant as well as the pelvis. There was adequate hemostasis. I ran the small bowel backwards from the terminal ileum for about 6 feet all of which was normal. All the peritoneal surfaces were normal. Small/ large bowel, liver, stomach etc. all appeared grossly normal. We did a final irrigation and then removed all the trochars and desufflated the abdomen. The fascia of the camera port as well as the left lower quadrant were closed using 0 Vicryl in [id number] fashion. Wounds were all irrigated and closed using 4-0 Monocryl. Marcaine was injected around them for postoperative analgesia and skin glue used as a dressing. The patient was awakened extubated and transferred to recovery in stable condition. My physician's automotive parts counter assistant was present through the entire case. She assisted with prepping the patient and helped with exposure for port placement, helped run the camera and helped with fascial/wound closure at the end of the procedure as well as dressing placement. I attest to the content of the Intraoperative Record and any orders documented therein. Any exceptions are noted below. I attest to the content of the Intraoperative Record and any orders documented therein. Any exceptions are noted below.
[2025-05-07] MEDS ORDERED: MoRPHine SULFATE 2 MG/ML CARP IV PRN (12:38)
[2025-05-07] MEDS ORDERED: MoRPHine SULFATE 4 MG/ML 1 ML CARP\\VIAL IV PRN (12:38)
[2025-05-07] MEDS: LACTATED RINGER'S 1,000 ML IV SCH (12:45)
--- NOTE | 2025-05-07 12:58 | Anesthesiology Progress Note ---
Date of Service May 07, 2025 Anesthesia Post Procedure Vital Signs Vital Signs: Temp Pulse Pulse Pulse Resp BP BP 05/07/25 12:50 36.6 C 74 16 94/63 L 05/07/25 12:37 36.3 C L 73 16 106/70 05/07/25 12:25 73 16 112/66 05/07/25 12:15 72 18 98/60 L 05/07/25 12:05 76 18 108/65 05/07/25 11:57 36.2 C L 77 14 110/68 05/07/25 07:29 37.5 C 97 H 16 05/07/25 02:50 36.5 C 94 H 16 05/07/25 01:56 80 20 114/68 05/07/25 00:40 79 18 132/74 05/06/25 23:18 78 05/06/25 23:00 128/78 05/06/25 23:00 128/78 05/06/25 23:00 128/78 05/06/25 23:00 77 20 05/06/25 22:51 84 17 05/06/25 22:42 81 20 05/06/25 22:30 81 19 05/06/25 22:21 84 22 05/06/25 22:12 84 17 05/06/25 21:51 82 20 05/06/25 21:42 82 25 H 05/06/25 21:30 83 22 05/06/25 21:21 83 22 05/06/25 21:12 83 20 05/06/25 21:00 123/67 05/06/25 21:00 123/67 05/06/25 21:00 123/67 05/06/25 21:00 123/67 05/06/25 21:00 123/67 05/06/25 21:00 83 22 05/06/25 20:51 90 16 05/06/25 20:30 84 21 05/06/25 20:12 83 22 05/06/25 20:00 83 24 05/06/25 20:00 124/78 05/06/25 20:00 124/78 05/06/25 20:00 124/78 05/06/25 20:00 124/78 05/06/25 20:00 124/78 05/06/25 19:51 83 15 05/06/25 19:42 80 22 05/06/25 19:40 05/06/25 19:30 78 24 05/06/25 19:29 132/55 L 05/06/25 19:29 132/55 L 05/06/25 19:29 132/55 L 05/06/25 19:29 132/55 L 05/06/25 19:29 132/55 L 05/06/25 19:27 77 13 05/06/25 19:26 80 05/06/25 19:09 36.7 C 81 18 108/68 BP Pulse Ox O2 Del Method 05/07/25 12:50 92 Room Air 05/07/25 12:37 94 Room Air 05/07/25 12:25 95 Room Air 05/07/25 12:15 95 Room Air 05/07/25 12:05 94 Room Air 05/07/25 11:57 98 Room Air 05/07/25 07:29 116/76 93 Room Air 05/07/25 02:50 137/78 96 Room Air 05/07/25 01:56 98 05/07/25 00:40 95 05/06/25 23:18 05/06/25 23:00 05/06/25 23:00 05/06/25 23:00 05/06/25 23:00 96 05/06/25 22:51 05/06/25 22:42 05/06/25 22:30 05/06/25 22:21 05/06/25 22:12 05/06/25 21:51 96 05/06/25 21:42 96 05/06/25 21:30 96 05/06/25 21:21 97 05/06/25 21:12 96 05/06/25 21:00 05/06/25 21:00 05/06/25 21:00 05/06/25 21:00 05/06/25 21:00 05/06/25 21:00 96 05/06/25 20:51 98 05/06/25 20:30 98 05/06/25 20:12 99 05/06/25 20:00 100 05/06/25 20:00 05/06/25 20:00 05/06/25 20:00 05/06/25 20:00 05/06/25 20:00 05/06/25 19:51 98 05/06/25 19:42 98 05/06/25 19:40 97 Room Air 05/06/25 19:30 100 05/06/25 19:29 05/06/25 19:29 05/06/25 19:29 05/06/25 19:29 05/06/25 19:29 05/06/25 19:27 98 05/06/25 19:26 05/06/25 19:09 100 Room Air Pain Intensity Right Abdomen: Pain Intensity: 3 Abdomen: Pain Intensity: 3 Transfer of Care Handoff Completed per policy Notes Mental Status: alert / awake / arousable and participated in evaluation Patient Amnestic to Procedure: Yes Nausea / Vomiting: adequately controlled Pain: adequately controlled Airway Patency, RR, SpO2: stable & adequate BP & HR: stable & adequate Hydration State: stable & adequate Anesthetic Complications: no major complications apparent
--- NOTE | 2025-05-07 15:14 | Electrocardiogram Report ---
Test Reason : Blood Pressure : */* mmHG Vent. Rate : 79 BPM Atrial Rate : 79 BPM P-R Int : 172 ms QRS Dur : 90 ms QT Int : 400 ms P-R-T Axes : 38 -15 11 degrees QTcB Int : 458 ms Normal sinus rhythm Left atrial enlargement RSR' or QR pattern in V1 suggests right ventricular conduction delay Possible Anterior infarct , age undetermined Abnormal ECG When compared with ECG of 15-Nov-2021 08:47, T wave amplitude has decreased in Anterolateral leads Possible anterior WA now present Confirmed by Adina Brown ([place]) on 05/07/2025 3:14:07 PM Referred By: REFERRED SELF Confirmed By: Adina Brown
[2025-05-08 07:31] VITALS: BP 106/63; PULSE 67; RESP 18; TEMP 97.7; O2SAT 92
--- NOTE | 2025-05-08 10:06 | Surgery Progress Note ---
Date of Service May 08, 2025 Assessment & Plan (1) Acute appendicitis: Plan: Postoperative day #1 Doing well Okay for discharge instructions given Admission and Anticipated Discharge Date Admission Date: May 06, 2025 Subjective Patient seen. Feeling well with no complaints. Tolerating diet. Afebrile Physical Exam Physical Exam: Alert no acute distress Incisions are all intact. Expected postoperative tenderness Results & Data Vital Signs (Past 12 Hours) Vital Signs Temp Pulse Pulse Resp BP Pulse Ox O2 Del Method 05/08/25 07:31 36.5 C 67 18 106/63 92 Room Air 05/07/25 23:51 36.3 C L 62 20 110/64 95 Room Air 05/07/25 23:05 36.3 C L 63 18 90/51 L 93 Room Air PG Care Time/CCT Total # of Minutes Spent Total Time Spent with Patient: Total time spent is greater than 50% in coordination of care (as documented) at patient's floor/unit and/or counseling patient: Coding Level of Care Code 59854 Post Operative Follow-Up Diagnoses Acute appendicitis K35.80
== END 2025-05-08 11:30 | disposition home or self-care (01) | DRG 399 ==
LOC: ED 19:04 → 2W 23:01 → INTOOBSV 23:01 → 2W 05-07 02:39 → 3W 05-07 23:37